=== PATIENT | male | born 1995 | race Caucasian/White ===

== ENCOUNTER 2016-11-27 19:25 | Emergency (ER) | payer MEDICAID, OTHER ==
[~2016-11-27] VITALS: Ht 185.4 cm; Wt 100.0 kg
[2016-11-27 20:03] VITALS: Ht 185.4 cm; Wt 100.0 kg
--- NOTE | 2016-11-27 22:28 | ERD ---
ER Documentation Chief Complaint Date/Time DATE: 11/27/16 TIME: 22:26 Chief Complaint pushed inward further his ear plug into his L ear HPI 10-year-old male complains of left ear black stuck in his left ear. Denies any bleeding or discharge. ROS All systems reviewed and are negative except as per history of present illness. Allergies Allergies: Coded Allergies: No Known Allergy (Unverified , 09/21/14) PMhx/Soc Medical and Surgical Hx: pt denies Medical Hx, pt denies Surgical Hx History of Surgery: No Anesthesia Reaction: No Hx Neurological Disorder: No Hx Respiratory Disorders: No Hx Cardiac Disorders: No Hx Psychiatric Problems: No Hx Miscellaneous Medical Probl: No Hx Alcohol Use: No Hx Substance Use: No Hx Tobacco Use: No Physical Exam Vitals Vital Signs Date Time Temp Pulse Resp B/P Pulse Ox O2 Delivery O2 Flow Rate FiO2 11/27/16 20:03 98.3 92 18 141/86 97 Physical Exam Const: [], [id number]. Head: Atraumatic Eyes: Normal Conjunctiva ENT: Normal External Ears, Nose and Mouth. Foreign body visible in the left ear canal. No mastoid tenderness no bleeding. Neck: Full range of motion..~ No meningismus. Resp: Clear to auscultation bilaterally Cardio: Regular rate and rhythm, no murmurs Abd: Soft, non tender, non distended. Normal bowel sounds Skin: No petechiae or rashes Back: No midline or flank tenderness Ext: No cyanosis, or edema Neur: Awake and alert Psych: Normal Mood and Affect Procedures/MDM Stick your blood from headphones removed with alligator forceps. TM and canal normal after procedure. Discharged home with return precautions and primary care follow-up as needed. Evidence of TM., Mastoiditis, bleeding or lacerations. Departure Diagnosis: Primary Impression: Foreign body in left ear Encounter type: initial encounter Qualified Code: T16.2XXA - Foreign body of left ear, initial encounter Condition: Stable Patient Instructions: Foreign Body, Ear Canal (Removed) Additional Instructions: Recheck for new or worsening symptoms. KOFFI MCCALL MD Nov 27, 2016 22:28
== END 2016-11-27 22:43 | disposition home or self-care (01) ==
LOC: FTE 19:25
DX: T16.2XXA Foreign body in left ear, initial encounter (principal); X58.XXXA Exposure to other specified factors, initial encounter; Y92.9 Unspecified place or not applicable